=== PATIENT | female | born 1990 | race Caucasian/White ===

== ENCOUNTER 2019-04-25 13:09 | Inpatient (IN) ==
[2019-04-25] MEDS ORDERED: MAALOX PLUS LIQUID PO PRN (15:46)
[2019-04-25] MEDS ORDERED: MOTRIN PO PRN (15:46)
[2019-04-25] MEDS ORDERED: NICODERM PATCH TD PRN (15:46)
[2019-04-25] MEDS ORDERED: PHENOBARBITAL IV PRN (15:46)
[2019-04-25] MEDS ORDERED: ZOFRAN IM PRN (15:46)
[2019-04-25] MEDS ORDERED: IMODIUM PO PRN ×2 (15:46)
[2019-04-25] MEDS ORDERED: TUBERSOL ID ONE (15:46)
[2019-04-25] MEDS ORDERED: DESYREL PO PRN (15:46)
[2019-04-25] MEDS ORDERED: SENOKOT PO PRN (15:46)
[2019-04-25] MEDS ORDERED: NICOTINE GUM BUCCAL PRN (15:46)
[2019-04-25] MEDS ORDERED: SEROQUEL PO PRN (15:46)
[2019-04-25] MEDS ORDERED: ZOFRAN IV PRN (15:46)
[2019-04-25] MEDS ORDERED: DULCOLAX PR PRN (15:46)
[2019-04-25] MEDS ORDERED: D5W 1,000 ML IV PRN (15:46)
[2019-04-25 16:15] LABS: URINE SOURCE CLEAN CATCH
[2019-04-25 16:16] LABS: HEMATOCRIT 33.2 % (37.0-47.0); HEMOGLOBIN 11.7 g/dL (12.0-16.0); MCHC 35.2 g/dL (33-37); MCV 85.1 FL (81-99); MPV 11.3 FL (7.4-10.4); RBC 3.9 XMIL (4.2-5.4); RDW 12.8 % (11.5-14.5); WBC 7.44 X1000 (4.8-10.8)
[2019-04-25 16:32] LABS: UR AMPHETAMINES QUAL PRESUMPTIVE POSITIVE (NONE DETECT); UR BARBITUATES QUAL NONE DETECTED (NONE DETECT); UR BENZODIAZEPIN QUAL PRESUMPTIVE POSITIVE (NONE DETECT); UR CANNABINOIDS QUAL PRESUMPTIVE POSITIVE (NONE DETECT); UR COCAINE QUAL NONE DETECTED (NONE DETECT); UR METHADONE QUAL NONE DETECTED (NONE DETECT); UR METHAMPHETAMINE QUAL PRESUMPTIVE POSITIVE (NONE DETECT); UR OPIATES QUAL NONE DETECTED (NONE DETECT); UR OXYCODONE QUAL NONE DETECTED (NONE DETECT); UR PCP QUAL NONE DETECTED (NONE DETECT); UR PROPOXYPHENE QUAL NONE DETECTED (NONE DETECT); UR TCA QUAL NONE DETECTED (NONE DETECT)
[2019-04-25 16:37] LABS: BILIRUBIN URINE NEGATIVE (NEGATIVE); BLOOD URINE NEGATIVE (NEGATIVE); CLARITY CLEAR (CLEAR); COLOR YELLOW; GLUCOSE URINE NEGATIVE (NEGATIVE); KETONE URINE NEGATIVE (NEGATIVE); LEUKOCYTES URINE NEGATIVE (NEGATIVE); NITRITE URINE POSITIVE (NEGATIVE); PROTEIN URINE NEGATIVE (NEGATIVE); UROBILINOGEN URINE NORMAL
[2019-04-25 16:38] LABS: INR 1.01; PROTIME 13.8 Seconds (11.0-16.0)
[2019-04-25 16:48] LABS: AGAP 11; ALBUMIN 3.9 g/dL (3.5-5.0); ALKALINE PHOSPHATASE 53 U/L (32-104); AMYLASE 50 U/L (20-200); BUN 6 mg/dL (8-22); CALCIUM 8.4 mg/dL (8.8-10.2); CHLORIDE 103 mmol/L (98-107); COSMO 271; CREATININE 0.5 mg/dL (0.5-0.9); ESTIMATED GFR > 60; GLUCOSE 90 mg/dL (70-104); GOT 38 U/L (10-30); GPT 64 U/L (10-36); LIPASE 73 U/L (13-60); POTASSIUM 3.5 mmol/L (3.5-5.1); SODIUM 137 mmol/L (136-145); TCO2 22 mmol/L (25-35); TOTAL BILIRUBIN < 0.15 mg/dL (0.20-1.00); TOTAL PROTEIN 6.2 g/dL (6.3-8.3)
[2019-04-25 16:57] LABS: URINE BACTERIA 2+ /HFP; URINE EPITHELIAL CELLS >10 /HPF (<10); URINE WBC <10 /HPF (<10)
[2019-04-25 16:58] LABS: URINE CAST NONE SEEN /LPF; URINE CRYSTAL NONE SEEN /HPF; URINE YEAST NONE SEEN /HPF
[2019-04-25] MEDS: ZOFRAN ODT PO PRN (17:15)
[2019-04-25] MEDS ORDERED: LIBRIUM PO PRN (17:16)
[2019-04-25] MEDS ORDERED: SINEMET 25/100 PO PRN (17:16)
[2019-04-25] MEDS ORDERED: BENTYL PO PRN (17:16)
[2019-04-25] MEDS ORDERED: ROBAXIN PO PRN (17:16)
[2019-04-25] MEDS ORDERED: SUBUTEX SL SCH (17:30)
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
[2019-04-25] MEDS: SUBUTEX SL SCH (22:27)
[2019-04-26] MEDS: SUBUTEX SL SCH ×3 (05:58→22:22)
[2019-04-26] MEDS: PROTONIX PO SCH (05:59)
[2019-04-26] MEDS: THERA M PLUS PO SCH (08:46)
[2019-04-26] MEDS: VITAMIN B-1 PO SCH (08:46)
[2019-04-26] MEDS: FOLIC ACID PO SCH (08:46)
[2019-04-26] MEDS: VALTREX PO SCH ×3 (08:46→18:39)
[2019-04-26] MEDS: TYLENOL PO PRN (08:47)
[2019-04-26] MEDS: ATARAX PO PRN ×2 (09:02→22:25)
[2019-04-27] MEDS: SUBUTEX SL SCH ×3 (05:49→22:35)
[2019-04-27] MEDS: PROTONIX PO SCH (06:10)
[2019-04-27] MEDS: ZOFRAN ODT PO PRN (06:30)
--- NOTE | 2019-04-27 07:29 | PROGRESS NOTE ---
DATE: 04/26/2019 SUBJECTIVE: Patient notes that she is feeling okay. Denies any fevers or chills. Still having some muscle aches. Nausea has improved. OBJECTIVE: Vital Signs: Reviewed. General: She is awake, alert, oriented. She is in no distress. HEENT: Normocephalic. Neck: Supple. Cardiovascular: Regular rate. No murmurs. Chest: Clear, nonlabored. Abdomen: Soft, nondistended. ASSESSMENT: 1. Nausea, vomiting. 2. Abdominal pain. 3. Myalgias. 4. Paresthesias. 5. Paroxysmal sweating. 6. First trimester . 7. Herpes simplex outbreak. 8. Opiate abuse, withdrawal, and stabilization. PLAN: We will continue patient in the hospital on Subutex. Continue to wean as tolerated. Further orders as needed. cc: Burt Connell MD
[2019-04-27] MEDS: VALTREX PO SCH ×2 (09:42→22:36)
[2019-04-27] MEDS: BENADRYL PO PRN (09:43)
[2019-04-27] MEDS: FOLIC ACID PO SCH (09:44)
[2019-04-27] MEDS: THERA M PLUS PO SCH (09:44)
[2019-04-27] MEDS: VITAMIN B-1 PO SCH (09:45)
[2019-04-27] MEDS: TYLENOL PO PRN ×2 (10:03→14:16)
[2019-04-27] MEDS ORDERED: COLACE PO PRN (13:27)
[2019-04-27] MEDS ORDERED: XYLOCAINE-MPF 1% INJ ONE (13:29)
[2019-04-27] MEDS ORDERED: ROCEPHIN IM ONE (13:29)
[2019-04-27] MEDS ORDERED: PHENERGAN IM PRN (14:32)
--- NOTE | 2019-04-27 14:41 | Diag Imaging Result Doc PS360 ---
EXAM: US OBS COMPLETE < 14 WKS INDICATION: Uncertain dating; first trimester TECHNIQUE: COMPARISON: None. FINDINGS: There is an early single viable intrauterine gestation. A gestational sac, yolk sac, and pole are noted. There is no evidence of subchorionic hemorrhage. There is a 2 cm left ovarian cyst. The ovaries are unremarkable, otherwise. No solid adnexal masses or pelvic free fluid is identified. FHR-120 bpm GA by ultrasound-6 weeks 3 days +/- 4 days IMPRESSION: Single viable intrauterine gestation with no gross anomalies appreciated. Electronically signed by Masoud Watters 04/27/2019 2:39 PM
[2019-04-27 14:53] LABS: RPR NON-REACTIVE (NONREACTIVE)
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
[2019-04-27 22:32] LABS: RUBELLA SCREEN IMMUNE (IMMUNE)
[2019-04-28] MEDS: FOLIC ACID PO SCH (09:11)
[2019-04-28] MEDS: TYLENOL PO PRN (09:12)
[2019-04-28] MEDS: THERA M PLUS PO SCH (09:13)
[2019-04-28] MEDS: PROTONIX PO SCH (09:14)
[2019-04-28] MEDS: VALTREX PO SCH ×2 (09:14→22:13)
[2019-04-28] MEDS: VITAMIN B-1 PO SCH (09:14)
--- NOTE | 2019-04-28 09:23 | PROGRESS NOTE ---
DATE: 04/27/2019 SUBJECTIVE: Patient notes that she is starting to feel a little better. She is still having some itching. Denies any fevers or chills. I rechecked on her in the evening. She notes that she was feeling okay. Itching was improved. Symptoms were improving from a withdrawal standpoint. PHYSICAL EXAMINATION: Vital Signs: Reviewed. She is afebrile. Temperature 97.6 degrees, pulse 69, respiratory 18, blood pressure 191/48. General: Patient is awake, alert. She is in no distress. HEENT: Normocephalic. Neck: Supple. Cardiovascular: Regular rate. No murmurs. Chest: Clear, nonlabored. Abdomen: Soft. Extremities: Moves all extremities. Neurologic: No changes. ASSESSMENT: 1. Nausea and vomiting. 2. Abdominal pain. 3. Myalgias. 4. Paresthesias. 5. Paroxysmal sweating. 6. Opiate abuse withdrawal and stabilization. PLAN: We will continue patient in the hospital. Continue to wean Subutex as tolerated as she is , and we will follow. cc: Butr Connell MD
[2019-04-28] MEDS: SUBUTEX SL SCH (10:52)
[2019-04-28] MEDS ORDERED: SUBUTEX SL PRN (11:46)
[2019-04-28] MEDS ORDERED: ROCEPHIN 1 GM in NS 50 ML IV SCH (12:00)
[2019-04-28] MEDS ORDERED: ROCEPHIN IM ONE (13:44)
[2019-04-28] MEDS ORDERED: XYLOCAINE-MPF 1% INJ PRN (14:36)
[2019-04-28] MEDS: ROCEPHIN IM SCH (14:47)
[2019-04-28] MEDS: BENADRYL PO PRN ×2 (14:50→19:21)
--- NOTE | 2019-04-28 21:53 | PROGRESS NOTE ---
DATE: 04/28/2019 SUBJECTIVE: Patient notes that she is feeling better. She does not want to take anymore Suboxone, thinks that it makes her worse. PHYSICAL EXAMINATION: Vital Signs: Reviewed. General: She is awake, alert. She is in no distress. HEENT: Normocephalic. Neck: Supple. Cardiovascular: Regular rate. Chest: Clear. Abdomen: Soft. ASSESSMENT: 1. Nausea, vomiting. 2. Abdominal pain. 3. Tremors. 4. . 5. Herpes simplex with outbreak. 6. Opiate abuse and withdrawal. PLAN: We will continue patient in the hospital. We will stop her Suboxone today. We will continue vitamins. If she tolerates, we will discharge her home in the a.m. cc: Burt Connell MD
[2019-04-29] MEDS: PROTONIX PO SCH (06:10)
[2019-04-29 08:23] LABS: HEPATITIS B SURFACE ANTIGEN SEE COMMENTS
[2019-04-29] MEDS: VITAMIN B-1 PO SCH (10:26)
[2019-04-29] MEDS: FOLIC ACID PO SCH (10:26)
[2019-04-29] MEDS: THERA M PLUS PO SCH (10:26)
[2019-04-29] MEDS: VALTREX PO SCH (10:26)
[2019-04-29 11:43] VITALS: BP 109/48
[2019-04-29] MEDS: ROCEPHIN IM SCH (14:18)
--- NOTE | 2019-04-29 16:55 | DISCHARGE SUMMARY ---
ADMISSION DATE: 04/25/2019 DISCHARGE DATE: 04/29/2019 DISCHARGE DIAGNOSIS: 1. Nausea and vomiting. 2. Abdominal pain. 3. Myalgias. 4. Paresthesias. 5. Opiate abuse, withdrawal, and stabilization. 6. First trimester . 7. Herpes simplex. 8. Polysubstance use and abuse. 9. Chronic anxiety. CONSULTATION: SYSTEMS MECHANIC. PROCEDURES: None. BRIEF HOSPITAL COURSE: Patient was admitted to the hospital and placed on Subutex due to her . She was given Valtrex for herpes, symptomatic medications as tolerated. She did have an evaluation by OB while she was in the hospital. Thankfully, she had an uneventful hospital course. She did have some itching. I think this was more secondary to her withdrawal of the medication. As her withdrawal improved, her itching resolved. She also was noted to have an E. coli UTI that was pansensitive. She will be discharged home on Keflex. DISPOSITION: Patient will be discharged home on Keflex for her UTI. She will not be discharged with any narcotic medication as she weaned off of Subutex while she was in the hospital. Discussed with her that she still needs outpatient life counseling as well as drug counseling. She will follow up outpatient with OB of choice, as well as treatment facility of choice. cc: Burt Connell MD
[2019-05-01 11:33] LABS: HEPATITIS C GENOTYPE SEE COMMENTS
== END 2019-04-29 16:25 | disposition home or self-care (01) | DRG 832 ==
LOC: P.MEDSURG 15:27
PROVIDERS: ADMIT Family Medicine; ATTEND Family Medicine
CPT/HCPCS: 76801; 80053; 80104; 80301; 80305; 80307; 80320; 81001; 82055; 82150; 83690; 84703; 85027; 85610; 86580; 86592; 86703; 86762; 86850; 86900; 86901; 87077; 87088; 87186; 87340; 87390; 87491; 87591; 87902; A9270; G0431; G0434; G0477; G0480; G6040; J0696; J2550